=== PATIENT | female | born 1935 | race Two or more races ===

== ENCOUNTER 2017-06-09 14:51 | Emergency (ER) | payer MEDICARE ==
[~2017-06-09] VITALS: Ht 152.4 cm; Wt 65.8 kg
[2017-06-09 14:51] VITALS: BP 125/64
--- NOTE | 2017-06-09 15:22 | NUR ---
PA BEDSIDE FOR SUTURE REMOVAL
--- NOTE | 2017-06-09 15:38 | NUR ---
Patient discharged to daughters care back home in stable condition. Written and verbal after care instructions given to daughter and pt. Daughter verbalizes understanding of instruction. VSS upon discharge
== END 2017-06-09 15:38 | disposition home or self-care (01) ==
LOC: ER 14:58
DX: S61.217D Laceration without foreign body of left little finger without damage to nail, subsequent encounter (principal); F03.90 Unspecified dementia, unspecified severity, without behavioral disturbance, psychotic disturbance, mood disturbance, and anxiety; Z90.710 Acquired absence of both cervix and uterus
CPT/HCPCS: Z7502; Z7610